=== PATIENT | female | born 1980 | race African-American/Black ===

== ENCOUNTER 2018-12-12 09:59 | Emergency (ER) | payer OTHER ==
[2018-12-12 10:15] VITALS: BP 98/56; PULSE 68; TEMP 98.2; BMI 26.4
--- NOTE | 2018-12-12 10:53 | PDOC ---
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 Patient states was very tender at the time but since the injury has had resolution of pain and immobility. Pain Location: reports: lower extremity (left foot) Method of Injury: Yes: direct blow Modifying Factors: improves with: None Associated Symptoms (Fall): denies symptoms Past History - Travel Traveled outside of the country in the last 30 days: No Close contact w/someone who was outside of country & ill: No - Past Medical History Allergies/Adverse Reactions: Allergies Allergy/AdvReac Type Severity Reaction Status Date / Time No Known Allergies Allergy Verified 12/12/18 10:11 Home Medications: Ambulatory Orders NK [No Known Home Medication] 12/12/18 COPD: No - Suicide/Smoking/Psychosocial Hx Smoking History: Never smoked Review of Systems - Review of Systems Able to Perform ROS?: Yes Is the patient limited Slovak proficient: Yes Constitutional: Yes: Symptoms Reported, See HPI. No: Malaise HEENTM: Yes: Symptoms Reported, See HPI Respiratory: No: Symptoms reported Musculoskeletal: Yes: Symptoms Reported, See HPI All Other Systems: Reviewed and Negative *Physical Exam - Vital Signs Last Vital Signs Temp Pulse Resp BP Pulse Ox 98.2 F 68 16 98/56 L 100 12/12/18 10:13 12/12/18 10:13 12/12/18 10:13 12/12/18 10:13 12/12/18 10:13 - Physical Exam General Appearance: Yes: Nourished, Appropriately Dressed. No: Mild Distress Neck: positive: Supple Respiratory/Chest: positive: Lungs Clear Extremity: positive: Normal Capillary Refill, Normal Inspection, Normal Range of Motion Integumentary: positive: Normal Color, Other (no swelling, ecchymosis, or reproduce tenderness along any of the MTPs for phalanxes of left foot. States second toe with one most impacted but states feels well now. Has full range of motion and sensation intact to all digits). negative: Ecchymosis, Bruising Neurologic: positive: acquisition consultant II-XII NML intact, Fully Oriented, Alert, Normal Mood/ Affect, Normal Response, Motor Strength 5/5 Moderate Sedation - Procedure Monitoring Vital Signs: Procedure Monitoring Vital Signs Temperature 98.2 F 12/12/18 10:13 Pulse Rate 68 12/12/18 10:13 Respiratory Rate 16 12/12/18 10:13 Blood Pressure 98/56 L 12/12/18 10:13 O2 Sat by Pulse Oximetry (%) 100 12/12/18 10:13 Progress Note - Progress Note Progress Note: Crush injury to left foot/toes, with no significant injury. X-ray negative for fractures or dislocations. Patient refuses ibuprofen, Kishore wrap applied to foot, and patient returned To work today *DC/Admit/Observation/Transfer Diagnosis at time of Disposition: Crush injury of foot Qualifiers: Encounter type: initial encounter Laterality: left Qualified Code(s): S97.82XA - Crushing injury of left foot, initial encounter - Discharge Dispostion Disposition: HOME Condition at time of disposition: Stable Decision to Admit order: No - Referrals Referrals: ON STAFF,NOT [Primary Care Provider] - - Patient Instructions Printed Discharge Instructions: DI for Crush Injury Additional Instructions: Rest, ice to area on and off for 15 minutes 4-6 times a day Avoid heavy lifting or exercise until pain and swelling is resolved or until further directed Keep area highly elevated to reduce swelling Use splints/Kishore wrap as directed Followup with orthopedist in one to 2 days if not improving, if significantly improved may wait one week for followup with orthopedist May use ibuprofen every 6 hours as needed for pain - Post Discharge Activity Forms/Work/School Notes: Back to Work
== END 2018-12-12 11:43 | disposition home or self-care (01) ==
LOC: JERFT 09:59
DX: S97.82XA Crushing injury of left foot, initial encounter (principal); W20.8XXA Other cause of strike by thrown, projected or falling object, initial encounter; Y93.89 Activity, other specified; Y92.234 Operating room of hospital as the place of occurrence of the external cause; Y99.0 Civilian activity done for income or pay
CPT/HCPCS: 73630-TC-LT; 99281-25